=== PATIENT | male | born 1990 | race African-American/Black ===

== ENCOUNTER 2022-12-07 00:54 | Emergency (ER) | payer OTHER, SELFPAY ==
--- NOTE | 2022-12-07 | ECG_ITS ---
Test Reason : chest tightness Blood Pressure : / mmHG Vent. Rate : 084 BPM Atrial Rate : 084 BPM P-R Int : 152 ms QRS Dur : 090 ms QT Int : 372 ms P-R-T Axes : 023 065 -07 degrees QTc Int : 439 ms Normal sinus rhythm T wave abnormality, consider anterolateral ischemia Abnormal ECG No previous ECGs available Referred By: Generic ED Physician Electronically Signed By:Satish Ernandez
[2022-12-07 01:08] VITALS: BP 125/80; PULSE 79; RESP 20; TEMP 36.6; O2SAT 100; BMI 38.4
[2022-12-07 01:38] LABS: Hematocrit 48.6 % (42.0-52.0); Hemoglobin 15.8 g/dl (14.0-18.0); Mean Corpuscular HGB Conc 32.5 g/dl (31.0-36.0); Mean Corpuscular Hemoglobin 28.9 pg (27.0-33.0); Mean Corpuscular Volume 88.8 fL (80.0-98.0); Mean Platelet Volume 11.2 fL (9.4-12.4); Platelet Count 267 X10*3/uL (160-400); Red Blood Count 5.47 X10*6/uL (4.60-5.80); Red Cell Distribution Width 13.4 % (11.0-16.0); White Blood Count 10.7 X10*3/uL (4.8-10.8)
[2022-12-07 01:54] LABS: Alanine Aminotransferase 49 U/L (0-40); Albumin Level 4.3 g/dL (3.5-5.0); Alkaline Phosphatase 125 U/L (39-117); Anion Gap 15 (12-20); Aspartate Amino Transferase 31 U/L (5-37); Bilirubin Total 0.8 mg/dL (0.0-1.0); Blood Urea Nitrogen 13 mg/dL (9-16); Calcium 9.3 mg/dL (8.4-10.2); Carbon Dioxide 24 mmol/L (22-29); Chloride 107 mmol/L (96-108); Creatinine Clr Calc Pharmacy 132.8; Estimated Glomerular Filt Rate > 60; Glucose Random 108 mg/dL (60-115); Potassium 4.6 mmol/L (3.3-5.1); Sodium 141 mmol/L (135-145); Total Protein 7.5 g/dL (6.5-8.0)
[2022-12-07 02:27] VITALS: BP 114/69; PULSE 71; RESP 16; TEMP 36.8; O2SAT 96
--- NOTE | 2022-12-07 02:36 | PC.NURSE ---
Pt aox3 with family at bedside. Pt reports neck pain, abd pain, n/v, and feeling I don't know if I am going to pass out. It feels weird. Pending MD art. Will continue to monitor.
--- OUTSIDE RECORDS SUMMARY | 2022-12-07 03:31 | XMS_ITS | Summary of Care ---
:1990 Author Organization [facility] Address [address] [place] [address]- Care Team Providers Name Role Phone KATHE UMANZOR MD Primary Care Physician Encounter [facility]_CSN [id number] Date(s): 09/19/21 - 09/19/[address] [address]- Discharge Disposition: Discharge Attending Physician: ASHISH LISA MD Referring Physician: JAY MIGUEL DO Allergies, Adverse Reactions, Alerts Substance Reaction Severity Status ibuprofen Active penicillins Active shellfish Active Keflex Active Nuts Active Tomatoes Active eggs Active kiwi Active Bactrim mucositis and morbilliform skin eruption Active Chocolate Active Medications Artificial Tears ophthalmic solution Dose Amount: 1 drop, Eye Both, TID, PRN Allergy symptoms, Special Instructions: Apply TID prn tp occular itching, Dispense Quantity: 10 mL, Entered: 09/19/21 11:18:00 EST, [facility]/pharmacy #[id number] Start Date: 09/19/21 Status: OrderedDupixent Pre-filled Pen 300 mg/2 mL subcutaneous solution Dose: 300 mg, Subcutaneous, Q2wk, Special Instructions: Inject 300mg prefilled pen SQ every 2 weeks,rotate injection sites, Dispense Quantity: 2 kit, Refills: 6, Entered: 09/19/21 10:51:00 EST, [facility] Start Date: 09/19/21 Status: Orderedhalobetasol 0.05% topical ointment Dose Amount: 1 appl, TOP, BID, Special Instructions: Apply twice per week as needed, Dispense Quantity: 50 g, Refills: 1, Entered: 09/19/21 10:48:00 EST, [facility]/pharmacy #[id number] Start Date: 09/19/21 Status: Orderedmometasone 0.1% topical ointment See Instructions, Special Instructions: Apply 1-2 times a week to itchy areas, Dispense Quantity: 45g, Refills: 2, Entered: 09/19/21 10:47:00 EST, [facility]/pharmacy #[id number] Start Date: 09/19/21 Status: OrderedProtopic 0.1% topical ointment See instructions, Special Instructions: Apply a thin layer twice daily to affected areas, including face and head., Dispense Quantity: 60 g, Refills: 11, Entered: 09/19/21 10:48:00 EST, Dispense as Written, [facility]/pharmacy #[id number] Start Date: 09/19/21 Status: Ordered Problem List Condition Effective Dates Status Health Status Informant Asthma(Confirmed) Active Atopic dermatitis(Confirmed)1 Active 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
--- OUTSIDE RECORDS SUMMARY | 2022-12-07 03:31 | XMS_ITS | Summary of Care ---
:1990 Author Organization [facility] Address [address] [place] [address]- Care Team Providers Name Role Phone KATHE UMANZOR MD Primary Care Physician Encounter [facility]_CSN [id number] Date(s): 04/11/21 - 03/21/[address] [address]- Attending Physician: MARU KOHLI MD Referring Physician: REFERRING , SELF REFERRED/NO Allergies, Adverse Reactions, Alerts Substance Reaction Severity Status ibuprofen Active penicillins Active shellfish Active Keflex Active Bactrim mucositis and morbilliform skin eruption Active Chocolate Active Nuts Active Tomatoes Active eggs Active kiwi Active Problem List Condition Effective Dates Status Health Status Informant Asthma(Confirmed) Active Atopic dermatitis(Confirmed)1 Active 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
--- OUTSIDE RECORDS SUMMARY | 2022-12-07 03:31 | XMS_ITS | Summary of Care ---
:1990 Author Organization [facility] Address [address] [place] [address]- Care Team Providers Name Role Phone KATHE UMANZOR MD Primary Care Physician Encounter [facility]_CSN [id number] Date(s): 08/28/22 - 08/28/[address] [address]- Discharge Disposition: Discharge Attending Physician: KIRK VARGAS, PhD, MARCIANO Aranda Referring Physician: JAY MIGUEL DO Allergies, Adverse Reactions, Alerts Substance Reaction Severity Status ibuprofen Active penicillins Active Chocolate Active Tomatoes Active eggs Active kiwi Active shellfish Active Nuts Active Keflex Active Bactrim mucositis and morbilliform skin eruption Active Medications Advair Diskus 250 mcg-50 mcg inhalation powder Dose Amount: 1 puff, INH, BID, Dispense Quantity: 1 EA, Refills: 6, Entered: 08/28/22 10:45:00 EST, [facility] #[id number] Start Date: 08/28/22 Status: Orderedalbuterol CFC free 90 mcg/inh inhalation aerosol Dose Amount: 2 puff, INH, Q4hr, PRN Cough, Dispense Quantity: 1 EA, Refills: 11, Entered: 08/28/22 10:45:00 EST, [facility] #[id number] Start Date: 08/28/22 Status: OrderedBactroban 2% topical ointment Dose Amount: 1 appl, TOP, TID, PRN Rash, Special Instructions: apply to open areas, Dispense Quantity: 30 g, Refills: 3, Entered: 08/28/22 10:45:00 EST, [facility] Start Date: 08/28/22 Status: Orderedcetirizine 10 mg oral capsule Dose: 10 mg, Dose Amount: 1 cap, PO, daily, Dispense Quantity: 90 cap, Refills: 4, Entered: 08/28/2210:43:00 EST, [facility] #[id number] Start Date: 08/28/22 Status: OrderedEpiPen 2-David 0.3 mg injectable kit Dose: 0.3 mg, IM, As Directed, Special Instructions: >30 kg, inject into thigh, Dispense Quantity: 2 kit, Refills: 0, Entered: 08/28/22 10:44:00 EST, [employer] generic epinephrine, Dispense as Written, [id number] Start Date: 08/28/22 Status: OrderedFlonase 50 mcg/inh nasal spray Dose Amount: 1 spray, Nasal, bedtime, Special Instructions: use for 2-4 weeks prn cough and congestion, Dispense Quantity: 1 EA, Refills: 5, Entered: 08/28/22 10:45:00 EST, [facility] #[id number] Start Date: 08/28/22 Status: Orderedhalobetasol 0.05% topical ointment Dose Amount: 1 appl, TOP, BID, Special Instructions: Apply twice per week as needed, Dispense Quantity: 50 g, Refills: 1, Entered: 08/28/22 10:44:00 EST, [id number] Start Date: 08/28/22 Status: Orderedmometasone 0.1% topical ointment See Instructions, Special Instructions: Apply 1-2 times a week to itchy areas, Dispense Quantity: 45g, Refills: 2, Entered: 08/28/22 10:44:00 EST, [id number] Start Date: 08/28/22 Status: OrderedProtopic 0.1% topical ointment See instructions, Special Instructions: Apply a thin layer twice daily to affected areas, including face and head., Dispense Quantity: 60 g, Refills: 11, Entered: 08/28/22 10:44:00 EST, Dispense as Written, [id number] Start Date: 08/28/22 Status: OrderedSingulair 10 mg oral tablet Dose: 10 mg, Dose Amount: 1 tab, PO, bedtime, Dispense Quantity: 90 tab, Refills: 0, Entered: 08/28/22 10:46:00 EST, [id number] Start Date: 08/28/22 Stop Date: 11/26/22 Status: Ordered Problem List Condition Effective Dates Status Health Status Informant Asthma(Confirmed) Active Atopic dermatitis(Confirmed)1 Active 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
--- OUTSIDE RECORDS SUMMARY | 2022-12-07 03:31 | XMS_ITS | Summary of Care ---
:1990 Author Organization [facility] Address [address] [place] [address]- Care Team Providers Name Role Phone JAY MIGUEL DO Primary Care Physician Encounter [facility]_CSN [id number] Date(s): 08/23/20 - 08/23/[address] [address]- [facility] Encounter Diagnosis Severe persistent asthma, uncomplicated (Final) - Atopic dermatitis, unspecified (Final) - Allergy to eggs (Final) - Allergy to milk products (Final) - Discharge Disposition: Discharge Attending Physician: ASHISH LISA MD Referring Physician: JAY MIGUEL DO Allergies, Adverse Reactions, Alerts Substance Reaction Severity Status ibuprofen Active penicillins Active shellfish Active Keflex Active Bactrim mucositis and morbilliform skin eruption Active Chocolate Active Nuts Active Tomatoes Active eggs Active kiwi Active Medications clindamycin 1% topical lotion Dose Amount: 1 appl, TOP, BID, Special Instructions: after shaving, Dispense Quantity: 60 mL, Refills: 3, Entered: 08/23/20 10:15:00 [id number] Start Date: 08/23/20 Status: Ordered Problem List Condition Effective Dates Status Health Status Informant Asthma(Confirmed) Active Atopic dermatitis(Confirmed)1 Active 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
--- OUTSIDE RECORDS SUMMARY | 2022-12-07 03:32 | XMS_ITS | Summary of Care ---
:1990 Author Organization [facility] Address [address] [place] [address]- Care Team Providers Name Role Phone KATHE UMANZOR MD Primary Care Physician Encounter [facility]_CSN [id number] Date(s): 03/21/21 - 03/21/[address] [address]- Attending Physician: ASHISH LISA MD Referring Physician: [...] due to topical Active corticosteroid(Confirmed)2 1Added by [email or web address] by [facility]
--- OUTSIDE RECORDS SUMMARY | 2022-12-07 03:32 | XMS_ITS | Summary of Care ---
:1990 Author Organization [facility] Address [address] [place] [address]- Care Team Providers Name Role Phone KATHE UMANZOR MD Primary Care Physician Encounter [facility]_CSN [id number] Date(s): 03/21/21 - 03/21/[address] [address]- Attending Physician: MARU KOHLI MD Referring Physician: [...] due to topical Active corticosteroid(Confirmed)2 1Added by [email or web address] by [facility]
--- OUTSIDE RECORDS SUMMARY | 2022-12-07 03:32 | XMS_ITS | Summary of Care ---
:1990 Author Organization [facility] Address [address] [place] [address]- Care Team Providers Name Role Phone KATHE UMANZOR MD Primary Care Physician Encounter [facility]_CSN [id number] Date(s): 09/19/21 - 09/19/[address] [address]- Discharge Disposition: Discharge Attending Physician: KIRK VARGAS, PhD, MARCIANO Aranda Referring Physician: JAY MIGUEL DO Allergies, Adverse Reactions, Alerts Substance Reaction Severity Status ibuprofen Active penicillins Active shellfish Active Keflex Active Bactrim mucositis and morbilliform skin eruption Active Chocolate Active Nuts Active Tomatoes Active eggs Active kiwi Active Medications Advair Diskus 250 mcg-50 mcg inhalation powder Dose Amount: 1 puff, INH, BID, Dispense Quantity: 1 EA, Refills: 6, Entered: 09/19/21 11:31:00 EST, [facility] #[id number] Start Date: 09/19/21 Status: Orderedalbuterol CFC free 90 mcg/inh inhalation aerosol Dose Amount: 2 puff, INH, Q4hr, PRN Cough, Dispense Quantity: 1 EA, Refills: 11, Entered: 09/19/21 11:22:00 EST, [facility] Start Date: 09/19/21 Status: OrderedBactroban 2% topical ointment Dose Amount: 1 appl, TOP, TID, PRN Rash, Special Instructions: apply to open areas, Dispense Quantity: 30 g, Refills: 3, Entered: 09/19/21 11:22:00 EST, [facility] Start Date: 09/19/21 Status: OrderedFlonase 50 mcg/inh nasal spray Dose Amount: 1 spray, Nasal, bedtime, Special Instructions: use for 2-4 weeks prn cough and congestion, Dispense Quantity: 1 EA, Refills: 5, Entered: 09/19/21 11:21:00 EST, [facility]/pharmacy #[id number] Start Date: 09/19/21 Status: OrderedSingulair 10 mg oral tablet Dose: 10 mg, Dose Amount: 1 tab, PO, bedtime, Dispense Quantity: 90 tab, Refills: 0, Entered: 09/19/21 11:21:00 EST, 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
--- OUTSIDE RECORDS SUMMARY | 2022-12-07 03:32 | XMS_ITS | Summary of Care ---
:1990 Author Organization [facility] Address [address] [place] [address]- Care Team Providers Name Role Phone KATHE UMANZOR MD Primary Care Physician Encounter [facility]_CSN [id number] Date(s): 09/25/22 - 09/25/[address] [address]- Encounter Diagnosis Intrinsic (allergic) eczema (Final) - Encounter for therapeutic drug level monitoring (Final) - Discharge Disposition: Discharge Attending Physician: ASHISH LISA MD Referring Physician: JAY MIGUEL DO Allergies, Adverse Reactions, Alerts Substance Reaction Severity Status ibuprofen Active penicillins Active Keflex Active Chocolate Active Tomatoes Active eggs Active kiwi Active shellfish Active Nuts Active Bactrim mucositis and morbilliform skin eruption Active Medications ammonium lactate 12% topical cream Dose Amount: 1 appl, TOP, daily, Special Instructions: Apply to rough areas on body a few times per week. Hold for irritation., Dispense Quantity: 385 g, Refills: 9, Entered: 09/25/22 11:47:00 EST, [facility] #[id number] Start Date: 09/25/22 Status: OrderedArtificial Tears ophthalmic solution Dose Amount: 1 drop, Eye Both, TID, PRN Allergy symptoms, Special Instructions: Apply TID prn tp occular itching, Dispense Quantity: 10 mL, Refills: 3, Entered: 09/25/22 11:43:00 EST, [id number] Start Date: 09/25/22 Status: OrderedBactroban 2% topical ointment Dose Amount: 1 appl, TOP, TID, PRN Rash, Special Instructions: apply to open areas, Dispense Quantity: 30 g, Refills: 3, Entered: 09/25/22 11:43:00 EST, [id number] Start Date: 09/25/22 Status: OrderedDupixent Pre-filled Pen 300 mg/2 mL subcutaneous solution Dose: 300 mg, Subcutaneous, Q2wk, Special Instructions: Inject 300mg prefilled pen SQ every 2 weeks,rotate injection sites, Dispense Quantity: 1 kit, Refills: 8, Entered: 09/25/22 11:47:00 EST, [id number] Start Date: 09/25/22 Status: Orderedhalobetasol 0.05% topical ointment Dose Amount: 1 appl, TOP, BID, Special Instructions: Apply twice per week as needed, Dispense Quantity: 50 g, Refills: 3, Entered: 09/25/22 11:43:00 EST, [id number] Start Date: 09/25/22 Status: OrderedHydrolatum topical ointment Dose Amount: 1 appl, TOP, TID, Special Instructions: Pharmacist please supply in a jar, not tubes. Apply twice daily and more often as needed, Dispense Quantity: 454 g, Refills: 11, Entered: 09/25/22 11:43:00 EST, [facility] #[id number] Start Date: 09/25/22 Status: Orderedmometasone 0.1% topical ointment See Instructions, Special Instructions: Apply 1-2 times a week to itchy areas, Dispense Quantity: 45g, Refills: 5, Entered: 09/25/22 11:44:00 EST, [facility] #[id number] Start Date: 09/25/22 Status: OrderedProtopic 0.1% topical ointment See instructions, Special Instructions: Apply a thin layer twice daily to affected areas, including face and head., Dispense Quantity: 60 g, Refills: 11, Entered: 09/25/22 11:44:00 EST, Dispense as Written, [facility] #[id number] Start Date: 09/25/22 Status: Ordered Problem List Condition Effective Dates Status Health Status Informant Asthma(Confirmed) Active Atopic dermatitis(Confirmed)1 Active 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
--- OUTSIDE RECORDS SUMMARY | 2022-12-07 03:32 | XMS_ITS | Summary of Care ---
:1990 Author Organization [facility] Address [address] [place] [address]- Care Team Providers Name Role Phone JAY MIGUEL DO Primary Care Physician Encounter [facility]_CSN [id number] Date(s): 01/17/21 - 01/17/[address] [address]- Encounter Diagnosis Intrinsic (allergic) eczema (Final) - Discharge Disposition: Discharge Attending Physician: [...] due to topical Active corticosteroid(Confirmed)2 1Added by [email or web address] by [facility]
--- OUTSIDE RECORDS SUMMARY | 2022-12-07 03:32 | XMS_ITS | Summary of Care ---
:1990 Author Organization [facility] Address [address] [place] [address]- Care Team Providers Name Role Phone JAY MIGUEL DO Primary Care Physician Encounter [facility]_CSN [id number] Date(s): 12/20/20 - 12/20/[address] [address]- [facility] Attending Physician: SLOAN VARGAS, ASHISH Boland Referring Physician: JAY MIGUEL DO Allergies, Adverse Reactions, Alerts Substance Reaction Severity Status ibuprofen Active penicillins Active shellfish Active Keflex Active Bactrim mucositis and morbilliform skin eruption Active Chocolate Active Nuts Active Tomatoes Active eggs Active kiwi Active Medications mometasone 0.1% topical ointment See Instructions, Special Instructions: Apply 1-2 times a week to itchy areas Large surface area requires 3x 45 gram tubes (135gm) per month, Dispense Quantity: 135 g, Refills: 0, Entered: 11/10/20 9:59:00 [facility]/pharmacy #[id number] Start Date: 11/10/20 Status: Ordered Problem List Condition Effective Dates Status Health Status Informant Asthma(Confirmed) Active Atopic dermatitis(Confirmed)1 Active 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
--- OUTSIDE RECORDS SUMMARY | 2022-12-07 03:32 | XMS_ITS | Summary of Care ---
:1990 Author Organization [facility] Address [address] [place] [address]- Care Team Providers Name Role Phone JAY MIGUEL DO Primary Care Physician Encounter [facility]_CSN [id number] Date(s): 08/23/20 - 08/23/[address] [address]- [facility] Encounter Diagnosis Severe persistent asthma, uncomplicated (Final) - Atopic dermatitis, unspecified (Final) - Allergy to eggs (Final) - Allergy to milk products (Final) - Discharge Disposition: Discharge Attending Physician: KIRK VARGAS, PhD, MARCIANO Aranda Referring Physician: JAY MIGUEL DO Allergies, Adverse Reactions, Alerts Substance Reaction Severity Status ibuprofen Active penicillins Active shellfish Active Keflex Active Bactrim mucositis and morbilliform skin eruption Active Chocolate Active Nuts Active Tomatoes Active eggs Active kiwi Active Medications Advair Diskus 500 mcg-50 mcg inhalation powder Dose Amount: 1 puff, INH, BID, Dispense Quantity: 1 EA, Refills: 11, Entered: 08/23/20 9:29:00 [facility] #[id number] Start Date: 08/23/20 Status: Orderedalbuterol 0.63 mg/3 mL (0.021%) inhalation solution Dose Amount: 1 vial, NEB, Q4hr, PRN Wheezing, Dispense Quantity: 50 EA, Refills: 0, Entered: 08/23/20 9:28:00 [facility] #[id number] Start Date: 08/23/20 Status: Orderedalbuterol CFC free 90 mcg/inh inhalation aerosol Dose Amount: 2 puff, INH, Q4hr, PRN Cough, Dispense Quantity: 1 EA, Refills: 11, Entered: 08/23/20 9:28:00 EST, [facility] #[id number] Start Date: 08/23/20 Status: OrderedBactroban 2% topical ointment Dose Amount: 1 appl, TOP, TID, PRN Rash, Special Instructions: apply to open areas, Dispense Quantity: 30 g, Refills: 3, Entered: 08/23/20 9:30:00 EST, [facility] #[id number] Start Date: 08/23/20 Status: Orderedcetirizine 10 mg oral capsule Dose: 10 mg, Dose Amount: 1 cap, PO, daily, Dispense Quantity: 90 cap, Refills: 4, Entered: 209:28:00 EST, [facility] #[id number] Start Date: 08/23/20 Status: OrderedEpiPen 2-David 0.3 mg injectable kit Dose: 0.3 mg, IM, As Directed, Special Instructions: >30 kg, inject into thigh, Dispense Quantity: 2 kit, Refills: 5, Entered: 08/23/20 9:29:00 EST, [employer] generic epinephrine, Dispense as Written, [facility] #[id number] Start Date: 08/23/20 Status: OrderedFlonase 50 mcg/inh nasal spray Dose Amount: 1 spray, Nasal, bedtime, Special Instructions: use for 2-4 weeks prn cough and congestion, Dispense Quantity: 1 EA, Refills: 5, Entered: 08/23/20 9:29:00 EST, [facility] #[id number] Start Date: 08/23/20 Status: Orderedhalobetasol 0.05% topical ointment Dose Amount: 1 appl, TOP, BID, Dispense Quantity: 50 g, Refills: 0, Entered: 08/23/20 9:31:00 EST, [facility] #[id number] Start Date: 08/23/20 Status: OrderedhydrOXYzine hydrochloride 25 mg oral tablet Dose: 25 mg, Dose Amount: 1 tab, PO, Q6hr, PRN Itching, Dispense Quantity: 120 tab, Refills: 3, Entered: 08/23/20 9:30:00 EST, [facility] #[id number] Start Date: 08/23/20 Status: Orderedmometasone 0.1% topical ointment See Instructions, Special Instructions: Apply 1-2 times a week to itchy areas Large surface area requires 3x 45 gram tubes (135gm) per month, Dispense Quantity: 135 g, Refills: 0, Entered: 08/23/20 9:30:00 [facility] #[id number] Start Date: 08/23/20 Status: OrderedProtopic 0.1% topical ointment See instructions, Special Instructions: Apply a thin layer twice daily to affected areas, including face and head., Dispense Quantity: 60 g, Refills: 11, Entered: 08/23/20 9:31:00 [facility] #[id number] Start Date: 08/23/20 Status: OrderedSingulair 10 mg oral tablet Dose: 10 mg, Dose Amount: 1 tab, PO, bedtime, Dispense Quantity: 90 tab, Refills: 0, Entered: 08/23/20 9:30:00 [facility] #[id number] Start Date: 08/23/20 Stop Date: 11/21/20 Status: Ordered Problem List Condition Effective Dates Status Health Status Informant Asthma(Confirmed) Active Atopic dermatitis(Confirmed)1 Active 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
--- OUTSIDE RECORDS SUMMARY | 2022-12-07 03:32 | XMS_ITS | Summary of Care ---
:1990 Author Organization [facility] Address [address] [place] [id number]- Care Team Providers Name Role Phone KATHE UMANZOR MD Primary Care Physician Encounter [facility]B_CSN [id number] Date(s): 01/23/22 - 01/23/[address] [address]- Discharge Disposition: Discharge Attending Physician: KIRK VARGAS, PhD, MARCIANO Aranda Referring Physician: JAY MIGUEL DO Allergies, Adverse Reactions, Alerts Substance Reaction Severity Status ibuprofen Active penicillins Active Tomatoes Active eggs Active kiwi Active Chocolate Active shellfish Active Nuts Active Keflex Active Bactrim mucositis and morbilliform skin eruption Active Medications Advair Diskus 250 mcg-50 mcg inhalation powder Dose Amount: 1 puff, INH, BID, Dispense Quantity: 1 EA, Refills: 6, Entered: 01/23/22 10:38:00 EDT, [id number] Start Date: 01/23/22 Status: Orderedalbuterol CFC free 90 mcg/inh inhalation aerosol Dose Amount: 2 puff, INH, Q4hr, PRN Cough, Dispense Quantity: 1 EA, Refills: 11, Entered: 01/23/22 10:38:00 EDT, [id number] Start Date: 01/23/22 Status: OrderedBactroban 2% topical ointment Dose Amount: 1 appl, TOP, TID, PRN Rash, Special Instructions: apply to open areas, Dispense Quantity: 30 g, Refills: 3, Entered: 01/23/22 10:38:00 EDT, [id number] Start Date: 01/23/22 Status: Orderedcetirizine 10 mg oral capsule Dose: 10 mg, Dose Amount: 1 cap, PO, daily, Dispense Quantity: 90 cap, Refills: 4, Entered: 01/23/2210:41:00 EDT, [id number] Start Date: 01/23/22 Status: OrderedEpiPen 2-David 0.3 mg injectable kit Dose: 0.3 mg, IM, As Directed, Special Instructions: >30 kg, inject into thigh, Dispense Quantity: 2 kit, Refills: 5, Entered: 01/23/22 10:40:00 EDT, M[employer] generic epinephrine, Dispense as Written, [id number] Start Date: 01/23/22 Status: OrderedFlonase 50 mcg/inh nasal spray Dose Amount: 1 spray, Nasal, bedtime, Special Instructions: use for 2-4 weeks prn cough and congestion, Dispense Quantity: 1 EA, Refills: 5, Entered: 01/23/22 10:38:00 EDT, [id number] Start Date: 01/23/22 Status: Orderedhalobetasol 0.05% topical ointment Dose Amount: 1 appl, TOP, BID, Special Instructions: Apply twice per week as needed, Dispense Quantity: 50 g, Refills: 1, Entered: 01/23/22 10:39:00 EDT, [id number] Start Date: 01/23/22 Status: OrderedhydrOXYzine hydrochloride 25 mg oral tablet Dose: 25 mg, Dose Amount: 1 tab, PO, Q6hr, PRN Itching, Dispense Quantity: 120 tab, Refills: 3, Entered: 01/23/22 10:40:00 EDT, [id number] Start Date: 01/23/22 Status: Orderedmometasone 0.1% topical ointment See Instructions, Special Instructions: Apply 1-2 times a week to itchy areas, Dispense Quantity: 45g, Refills: 2, Entered: 01/23/22 10:39:00 EDT, [id number] Start Date: 01/23/22 Status: OrderedProtopic 0.1% topical ointment See instructions, Special Instructions: Apply a thin layer twice daily to affected areas, including face and head., Dispense Quantity: 60 g, Refills: 11, Entered: 01/23/22 10:39:00 EDT, Dispense as Written, [id number] Start Date: 01/23/22 Status: OrderedSingulair 10 mg oral tablet Dose: 10 mg, Dose Amount: 1 tab, PO, bedtime, Dispense Quantity: 90 tab, Refills: 0, Entered: 01/23/22 10:37:00 EDT, [id number] Start Date: 01/23/22 Stop Date: 04/23/22 Status: Ordered Problem List Condition Effective Dates Status Health Status Informant Asthma(Confirmed) Active Atopic dermatitis(Confirmed)1 Active 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
--- OUTSIDE RECORDS SUMMARY | 2022-12-07 03:32 | XMS_ITS | Summary of Care ---
:1990 Author Organization [facility] Address [address] [place] [address]- Care Team Providers Name Role Phone JAY MIGUEL DO Primary Care Physician Encounter CHB_CSN [id number] Date(s): 01/17/21 - 01/17/[address] [address]- Discharge Disposition: Discharge Attending Physician: ASHISH LISA [...] due to topical Active corticosteroid(Confirmed)2 1Added by [email or web address] by [facility]
--- OUTSIDE RECORDS SUMMARY | 2022-12-07 03:32 | XMS_ITS | Summary of Care ---
:1990 Author Organization [facility] Address [address] [place] [address]- Care Team Providers Name Role Phone KATHE UMANZOR MD Primary Care Physician Encounter [facility]B_CSN [id number] Date(s): 05/17/21 - 05/17/[address] [address]- Discharge Disposition: Discharge Attending Physician: ASHISH LISA MD Referring Physician: JAY MIGUEL DO Allergies, Adverse Reactions, Alerts Substance Reaction Severity Status ibuprofen Active penicillins Active shellfish Active Keflex Active Bactrim mucositis and morbilliform skin eruption Active Chocolate Active Nuts Active Tomatoes Active eggs Active kiwi Active Medications doxycycline hyclate 100 mg oral capsule Dose: 100 mg, Dose Amount: 1 cap, PO, BID, Dispense Quantity: 20 cap, Refills: 0, Entered: 05/17/21 10:06:00 EDT, [id number] Start Date: 05/17/21 Stop Date: 05/27/21 Status: OrderedDupixent Pre-filled Pen 300 mg/2 mL subcutaneous solution Dose: 300 mg, Subcutaneous, Q2wk, Special Instructions: Inject 300mg prefilled pen SQ every 2 weeks,rotate injection sites, Dispense Quantity: 2 kit, Refills: 3, Entered: 05/17/21 10:15:00 EDT, [facility] Start Date: 05/17/21 Status: Orderedhalobetasol 0.05% topical ointment Dose Amount: 1 appl, TOP, BID, Dispense Quantity: 50 g, Refills: 1, Entered: 05/17/21 10:10:00 EDT, [facility] Start Date: 05/17/21 Status: Orderedmometasone 0.1% topical ointment See Instructions, Special Instructions: Apply 1-2 times a week to itchy areas Large surface area requires 3x 45 gram tubes (135gm) per month, Dispense Quantity: 45 g, Refills: 3, Entered: 05/17/21 10:10:00 EDT, [id number] Start Date: 05/17/21 Status: OrderedProtopic 0.1% topical ointment See instructions, Special Instructions: Apply a thin layer twice daily to affected areas, including face and head., Dispense Quantity: 60 g, Refills: 11, Entered: 04/06/21 11:49:00 EDT, Dispense as Written, [id number] Start Date: 04/06/21 Status: Ordered Problem List Condition Effective Dates Status Health Status Informant Asthma(Confirmed) Active Atopic dermatitis(Confirmed)1 Active 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
[2022-12-07 03:58] VITALS: BP 120/71; PULSE 89; RESP 16; TEMP 36.6; O2SAT 100
== END 2022-12-07 05:27 | disposition left against medical advice (07) ==
PROVIDERS: Internal Medicine; Emergency Provider Emergency Medicine
DX: M54.2 Cervicalgia (principal); R11.0 Nausea; R10.9 Unspecified abdominal pain
CPT/HCPCS: 36415; 80053; 85027; 93005; 99283; 99284